=== PATIENT | female | born 1985 | race Caucasian/White ===

== ENCOUNTER 2017-04-04 23:39 | Emergency (ER) | payer OTHER ==
[~2017-04-04] VITALS: Ht 165.1 cm; Wt 50.0 kg
[~2017-04-04 23:39] MED LIST: ULTR50TA PO
[2017-04-04 23:44] VITALS: BP 129/94; PULSE 83; RESP 16; TEMP 98.3; O2SAT 100
[2017-04-04] MEDS ORDERED: IBUP-232 PO (23:57)
[2017-04-04] MEDS ORDERED: CIPR-9 PO (23:57)
[2017-04-04] MEDS ORDERED: ULTR50TA5 PO (23:57)
--- NOTE | 2017-04-04 23:57 | PD ---
HPI Chief Complaint: Oral / Dental Pain or Problem Time Seen by Provider: 23:52 Travel History International Travel<30 days: No Contact w/Intl Traveler<30days: No Traveled to known affect area: No History of Present Illness HPI 31-year-old female complains of dental pain. Patient states that the pain started today. Patient states the pain is sharp severe pain started at the left upper gum area. Patient stated the pain radiates to the entire left side of face and left-sided neck. Patient denies any fever chills. On a scale of 1- 10 the pain is a 10. PFSH Past Medical History Cancer: No Cardiovascular Problems: No Diabetes: No Diminished Hearing: No Glaucoma: No Hepatitis: No Hiatal Hernia: No Hypertension: No Musculoskeletal: Yes (chronic back pain) Respiratory: No Thyroid Disease: No : 5 Para: 3 Miscarriage: 1 : 1 Past Surgical History Pacemaker: No Other Surgery: No Social History Alcohol Use: Yes (OCC) Tobacco Use: Yes (1 PPD FOR 10 YEARS) Substance Use: Yes (occasional marijuana) Allergies-Medications (Allergen,Severity, Reaction): Coded Allergies: Penicillin (Verified Allergy, Severe, HIVES, 10/05/14) Reported Meds & Prescriptions Reported Meds & Active Scripts Active Reported Ultram (Tramadol HCl) 50 Mg Tab 50 Mg PO Q4H PRN Review of Systems General / Constitutional: No: Fever Eyes: No: Visual changes HENT: No: Headaches Cardiovascular: No: Chest Pain or Discomfort Respiratory: No: Shortness of Breath Gastrointestinal: No: Abdominal Pain Genitourinary: No: Dysuria Musculoskeletal: No: Pain Skin: No Rash Neurologic: No: Weakness Psychiatric: No: Depression Endocrine: No: Polydipsia Hematologic/Lymphatic: No: Easy Bruising Physical Exam Narrative GENERAL: Well-nourished, well-developed patient. SKIN: Focused skin assessment warm/dry. HEAD: Normocephalic. EYES: No scleral icterus. No injection or drainage. NECK: Supple, trachea midline. No JVD or lymphadenopathy. CARDIOVASCULAR: Regular rate and rhythm without murmurs, gallops, or rubs. RESPIRATORY: Breath sounds equal bilaterally. No accessory muscle use. GASTROINTESTINAL: Abdomen soft, non-tender, nondistended. MUSCULOSKELETAL: No cyanosis, or edema. BACK: Nontender without obvious deformity. No CVA tenderness. Patient has dental caries left upper gum. No soft tissue swelling. No evidence of facial swelling. No evidence of abscess. Data Data Last Documented VS Vital Signs Date Time Temp Pulse Resp B/P Pulse Ox O2 Delivery O2 Flow Rate FiO2 04/04/17 23:44 98.3 83 16 129/94 100 Orders Ketorolac Inj (Toradol Inj) (04/05/17 00:00) Clindamycin (Cleocin) (04/05/17 00:00) MDM Medical Decision Making Medical Screen Exam Complete: Yes Emergency Medical Condition: Yes Differential Diagnosis Differential diagnosis including dental pain, dental abscess. Narrative Course 31-year-old female with left upper gum pain and dental caries. Toradol 60 mg IM. Clindamycin 300 mg by mouth. Diagnosis Primary Impression: Pain, dental Patient Instructions: General Instructions Additional Instructions: Take medication as directed. Follow-up with a dentist. Med/Other Pt SpecificInfo: Prescription(s) given Scripts Tramadol (Ultram)50 Mg Tab50 Mg PO Q6H PRN (PAIN) #20 TAB Ref 0 Prov:Reg Quintanilla MD 04/04/17 Ibuprofen 600 Mg [id number] Mg PO Q8HR PRN (PAIN) #60 TAB Ref 0 Prov:Reg Quintanilla MD 04/04/17 Ciprofloxacin (Cipro)500 Mg [id number] Mg PO BID #20 TAB Prov:Reg Quintanilla MD 04/04/17 Disposition: 01 DISCHARGE HOME Condition: Stable Reg Quintanilla MD April 04, 2017 23:57
[2017-04-05] MEDS ORDERED: CLINDAMYCIN 150 MG CAP PO ONE
[2017-04-05] MEDS ORDERED: KETOROLAC TROMETHAMINE 60 MG/2 ML (IM) VIAL IM ONE
[2017-04-05 01:17] VITALS: BP 121/84
== END 2017-04-05 01:22 | disposition home or self-care (01) ==
LOC: PHED 23:39
DX: K08.89 Other specified disorders of teeth and supporting structures (principal); F17.200 Nicotine dependence, unspecified, uncomplicated
CPT/HCPCS: 96372; 99282; J1885

== ENCOUNTER 2017-08-09 21:31 | Emergency (ER) | payer OTHER ==
[~2017-08-09] VITALS: Ht 312.4 cm; Wt 50.0 kg
[~2017-08-09 21:31] MED LIST changes: +CIPR-9 PO; +IBUP-232 PO; -ULTR50TA PO; +ULTR50TA5 PO
[2017-08-09 21:50] VITALS: BP 140/92; PULSE 96; RESP 20; TEMP 98.3; O2SAT 98
[2017-08-09] MEDS ORDERED: MIDAZOLAM HCL 2 MG/2 ML VIAL IM ONE (22:00)
[2017-08-09] MEDS ORDERED: LORazepam 2 MG/ML VIAL IM ONE (22:00)
[2017-08-09 23:22] VITALS: PULSE 73; RESP 14; O2SAT 98
--- NOTE | 2017-08-10 00:05 | RADRPT ---
EXAM DATE/TIME: 08/09/2017 23:51 [facility] COMPARISON: CT BRAIN W/O CONTRAST, October 05, 2014, 15:55. INDICATIONS : Altered mental status. Possible intoxication. RADIATION DOSE: 32.02 CTDIvol (mGy) MEDICAL HISTORY : Non-responsive. SURGICAL HISTORY : Non-responsive. ENCOUNTER: Initial ACUITY: 1 day PAIN SCALE: Non-responsive LOCATION: cranial TECHNIQUE: Multiple contiguous axial images were obtained of the head. Using automated exposure control and adj ustment of the mA and/or kV according to patient size, radiation dose was kept as low as reasonably a chievable to obtain optimal diagnostic quality images. DICOM format image data is available electro nically for review and comparison. FINDINGS: CEREBRUM: The ventricles are normal for age. No evidence of midline shift, mass lesion, hemorrhage or acute in farction. No extra-axial fluid collections are seen. POSTERIOR FOSSA: The cerebellum and brainstem are intact. The 4th ventricle is midline. The cerebellopontine angle i s unremarkable. EXTRACRANIAL: The visualized portion of the orbits is intact. Nasal septal deviation toward the right. Several op acified ethmoid air cells bilaterally and mild mucosal thickening the visualized portion of the left maxillary sinus. SKULL: The calvaria is intact. No evidence of skull fracture. CONCLUSION: 1. No acute findings in the brain. 2. Bilateral ethmoid and left maxillary sinus disease. Unruly Ojeda MD on August 10, 2017 at 0:02 Board Certified Radiologist. This report was verified electronically.
--- NOTE | 2017-08-10 00:11 | RADRPT ---
EXAM DATE/TIME: 08/09/2017 23:51 [facility] COMPARISON: CT BRAIN W/O CONTRAST, August 09, 2017, 23:51. INDICATIONS : Altered mental status. Possible fall from intoxication. RADIATION DOSE: 20.10 CTDIvol (mGy) MEDICAL HISTORY : Non-responsive. SURGICAL HISTORY : Non-responsive. ENCOUNTER: Initial ACUITY: 1 day PAIN SCALE: 9/10 LOCATION: neck TECHNIQUE: Volumetric scanning of the cervical spine was performed. Multiplanar reconstructions in the sagittal, coronal and oblique axial planes were performed. Using automated exposure control and adjustment o f the mA and/or kV according to patient size, radiation dose was kept as low as reasonably achievable to obtain optimal diagnostic quality images. DICOM format image data is available electronically f or review and comparison. FINDINGS: Vertebral bodies of the cervical spine are in normal alignment and there is preservation of vertebral body height. No evidence of spondylolisthesis. The facet joints are normal alignment without evide nce of locked or perched facets. The spinous processes are intact. Atlantoaxial articulation is int act. C2-C3: No fracture seen. The bony neural foramen are patent. C3-C4: No fracture seen. The bony neural foramen are patent. C4-C5: No fracture seen. The bony neural foramen are patent. C5-C6: No fracture seen. The bony neural foramen are patent. C6-C7: No fracture seen. The bony neural foramen are patent. C7-T1: No fracture seen. The bony neural foramen are patent. CONCLUSION: No evidence of compression deformity or spondylolisthesis. Unruly Ojeda MD on August 10, 2017 at 0:05 Board Certified Radiologist. This report was verified electronically.
--- NOTE | 2017-08-10 00:38 | PD ---
HPI Chief Complaint: Alcohol/Drug Intoxication Time Seen by Provider: 22:06 Travel History International Travel<30 days: No Contact w/Intl Traveler<30days: No Traveled to known affect area: No History of Present Illness HPI Patient is a 32-year-old female who comes in by police due to public intoxication. She was placed under a [place] act by police. She is aggressive and uncooperative. She is refusing to provide any history. She does admit to drinking. She denies any other issues. PFS Past Medical History Medical History: Denies Significant Hx Cancer: No Cardiovascular Problems: No Diabetes: No Diminished Hearing: No Glaucoma: No Hepatitis: No Hiatal Hernia: No Hypertension: No Musculoskeletal: Yes (chronic back pain) Respiratory: No Thyroid Disease: No Tetanus Vaccination: Unknown ?: Unknown : 5 Para: 3 Miscarriage: 1 : 1 Past Surgical History Surgical History: No Previous Surgery Pacemaker: No Other Surgery: No Social History Alcohol Use: No Tobacco Use: Yes (1 PPD) Substance Use: Yes ("Marijuana occasionally") Allergies-Medications (Allergen,Severity, Reaction): Coded Allergies: penicillin G (Unverified Allergy, Severe, HIVES, 07/03/17) Reported Meds & Prescriptions Reported Meds & Active Scripts Active Ultram (Tramadol HCl) 50 Mg Tab 50 Mg PO Q6H PRN Ibuprofen 600 Mg Tab 600 Mg PO Q8HR PRN Cipro (Ciprofloxacin HCl) 500 Mg Tab 500 Mg PO BID Review of Systems ROS Limitations: Intoxication Physical Exam Narrative GENERAL: Awake and alert, aggressive, uncooperative. SKIN: Focused skin assessment warm/dry. HEAD: Hematoma to the right side of the forehead. Normocephalic. EYES: Pupils equal and round. No scleral icterus. Extraocular movements intact. ENT: Mucous membranes pink and moist. NECK: Trachea midline. No JVD. CARDIOVASCULAR: Regular rate and rhythm. No murmur appreciated. RESPIRATORY: No accessory muscle use. Clear to auscultation. Breath sounds equal bilaterally. GASTROINTESTINAL: Abdomen soft, non-tender, nondistended. MUSCULOSKELETAL: No obvious deformities. No clubbing. No cyanosis. No edema. NEUROLOGICAL: No obvious cranial nerve deficits. Motor grossly within normal limits. Normal speech. Data Data Last Documented VS Vital Signs Date Time Temp Pulse Resp B/P (MAP) Pulse Ox O2 Delivery O2 Flow Rate FiO2 08/09/17 23:22 73 14 98 Room Air 08/09/17 21:50 98.3 140/92 (108) Orders Orders Lorazepam Inj (Ativan Inj) (08/09/17 22:00) Midazolam Inj (Versed Inj) (08/09/17 22:00) Ed Urine Pregnancytest Poc (08/09/17 22:06) Ct Brain W/O Iv Contrast(Rout) (08/09/17 ) Ct Cerv Spine W/O Contrast (08/09/17 ) Ecg Monitoring (08/09/17 22:13) Oximetry (08/09/17 22:13) MDM Medical Decision Making Medical Screen Exam Complete: Yes Emergency Medical Condition: Yes Medical Record Reviewed: Yes Differential Diagnosis Alcohol intoxication versus drug intoxication versus head trauma Narrative Course Patient is a 32-year-old female brought in by police due to intoxication. She does have a hematoma to the right side of her forehead. She is aggressive, uncooperative, she had to be restrained to the bed. She was given Versed and Ativan. CT of her head and C-spine performed show no acute abnormalities. She will be observed in the emergency department until sober and able to safely get herself home. Diagnosis Primary Impression: Alcohol intoxication Qualified Codes: F10.920 - Alcohol use, unspecified with intoxication, uncomplicated Disposition: DISCHARGE HOME Condition: Stable Lurdes Holliday MD Aug 10, 2017 00:38
[2017-08-10] MEDS ORDERED: HALOPERIDOL LACTATE 5 MG/ML AMP IM ONE (01:15)
--- NOTE | 2017-08-10 03:54 | PD ---
Physical Exam Time Seen by Provider: 03:53 Narrative Please refer to previous providers documentation for details surrounding the patient's current visit. Data Data Last Documented VS Vital Signs Date Time Temp Pulse Resp B/P (MAP) Pulse Ox O2 Delivery O2 Flow Rate FiO2 08/09/17 23:22 73 14 98 Room Air 08/09/17 21:50 98.3 140/92 (108) Orders Orders Lorazepam Inj (Ativan Inj) (08/09/17 22:00) Midazolam Inj (Versed Inj) (08/09/17 22:00) Ed Urine Pregnancytest Poc (08/09/17 22:06) Ct Brain W/O Iv Contrast(Rout) (08/09/17 ) Ct Cerv Spine W/O Contrast (08/09/17 ) Ecg Monitoring (08/09/17 22:13) Oximetry (08/09/17 22:13) Haloperidol Inj (Haldol Inj) (08/10/17 01:15) Restraints Violent (08/10/17 01:45) MDM Medical Record Reviewed: Yes Supervised Visit with LARON: No Narrative Course Patient presents under [place] act. I assumed care at the patient from Dr. Holliday. Please refer her documentation for details during the patient's current visit. 0300 patient is restful, but very agitated upon arousal becomes verbally aggressive, threatening staff. She then goes back to restful on the stretcher. Extremities remained neurovascularly intact. 0500 Pt remains restful, until she is awoken. She becomes immediately argumentative with staff. Security is at bedside 0600 Pt continues to be awake and agitated. Security takes her restraints off and she is ambulatory without difficulty. She is oriented x3. Per her request, she will be allowed to leave at this time. Diagnosis Primary Impression: Alcohol intoxication Qualified Codes: F10.920 - Alcohol use, unspecified with intoxication, uncomplicated Disposition: 01 DISCHARGE HOME Condition: Stable TeriKathy MAIER Aug 10, 2017 03:54
[2017-08-10 06:00] VITALS: BP 100/62
== END 2017-08-10 06:10 | disposition home or self-care (01) ==
LOC: NEPD 21:31
DX: F10.920 Alcohol use, unspecified with intoxication, uncomplicated (principal)
CPT/HCPCS: 70450; 72125; 84703; 96372; 99285; J1630; J2060; J2250